=== PATIENT | female | born 1995 | race Caucasian/White ===

== ENCOUNTER 2019-10-15 09:27 | Emergency (ER) | payer MEDICAID ==
[~2019-10-15] VITALS: Ht 154.9 cm; Wt 56.7 kg
--- NOTE | 2019-10-15 10:07 | NUR ---
Throat swab collected and sent to LAB.
[2019-10-15 10:46] LABS: *MONOTEST NEGATIVE (NEGATIVE)
[2019-10-15] MEDS ORDERED: diphenhydrAMINE 25 MG CAP PO ONE ×2 (11:10→11:15)
[2019-10-15] MEDS ORDERED: DEXAMETHASONE 4 MG TABLET ONE (11:10)
[2019-10-15] MEDS ORDERED: AMOXICILLIN-CLAVUL 875-125MG TABLET ONE (11:10)
[2019-10-15] MEDS ORDERED: AMOXICILLIN-CLAVUL 875-125MG TABLET PO ONE (11:15)
[2019-10-15] MEDS ORDERED: DEXAMETHASONE 4 MG TABLET PO ONE (11:15)
--- NOTE | 2019-10-15 11:15 | NUR ---
Patient discharged to home in stable conditon. Written and verbal after care instructions given. Patient verbalizes understanding of instructions.PT WALKS IN STEADY GAIT. PT BREATHING NORMALLY, NO SIGN OF DISTRESS. ABLE TO SWALLOW SALIVA. Addendum: 10/15/19 at 1117 by PETER PT NOT DRIVING
[2019-10-15 11:16] VITALS: BP 109/79
== END 2019-10-15 11:17 | disposition home or self-care (01) ==
LOC: ER 09:27
DX: J02.9 Acute pharyngitis, unspecified (principal); L50.9 Urticaria, unspecified
CPT/HCPCS: 36415; 86308; 86403; 87070; 87077; 99284; J8540; Q0163; A4663

== ENCOUNTER 2020-10-14 15:46 | Emergency (ER) | payer MEDICAID ==
[~2020-10-14] VITALS: Ht 154.9 cm; Wt 54.4 kg
[2020-10-14] MEDS ORDERED: IV NORMAL SALINE 1000 ML BAG IV ONE (16:00)
--- NOTE | 2020-10-14 16:02 | NUR ---
Pt c/o RLQ ABD pain, 8/10 with spikes to 10/10, "sharp" in nature, x 2 weeks, recurring episodes of diarrhea. Pt denies CP, SOB, dizziness, n/v, no other complaints, no distress noted. Pt states she is , unknown term.
[2020-10-14 16:20] LABS: *BILIRUBIN,URIN NEGATIVE (NEGATIVE); *BLOOD, URINE 1+ (NEGATIVE); *COLOR,URINE YELLOW (YELLOW); *KETONES,URINE 2+ (NEGATIVE); *UROBILINOGEN,URINE 0.2 E.U./dl (NORMAL); LEUKOCYTE ESTERASE ,URINE NEGATIVE (NEGATIVE); NITRITE, URINE NEGATIVE (NEGATIVE); PH,URINE 5.5 (5.0-8.0); UGLUCOSE NEGATIVE (NEGATIVE)
[2020-10-14 16:23] LABS: *URINE HCG, QUAL POSITIVE (NEGATIVE)
[2020-10-14 16:46] LABS: BASOPHILS % (AUTO) 0.7 % (0.0-2.0); EOSINOPHILS % (AUTO) 0.9 % (0.0-7.0); HEMOGLOBIN 13.7 g/dL (10.9-14.3); LYMPHOCYTES % (AUTO) 17.9 % (20.5-51.5); MEAN CORPUSCULAR HEMOGLOBIN 31.6 uug (24.7-32.8); MEAN CORPUSCULAR HGB CONC 34 g/dL (32.3-35.6); MEAN CORPUSCULAR VOLUME 92.6 fL (75.5-95.3); MONOCYTES % (AUTO) 5.5 % (0.0-11.0); PLATELET COUNT (AUTO) 285 K/uL (179-408); RED BLOOD CELL COUNT(AUTO) 4.32 MIL/uL (3.63-4.92); WHITE BLOOD COUNT (AUTO) 10.6 K/uL (3.8-11.8)
[2020-10-14 16:47] LABS: BASOPHILS # (AUTO) 0.1 K/uL (0.0-8.0); EOSINOPHILS # (AUTO) 0.1 K/uL (0.0-0.7); LYMPHOCYTES # (AUTO) 1.9 K/uL (20.0-40.0); MONOCYTES # (AUTO) 0.6 K/uL (2.0-10.0); NEUTROPHILS # (AUTO) 7.9 K/uL (1.8-8.9)
[2020-10-14 16:55] LABS: CARBON DIOXIDE 24 mmol/L (21-32); CHLORIDE 103 mmol/L (98-107); CREATININE 0.5 mg/dL (0.6-1.3); GLUCOSE 80 mg/dL (74-106); POTASSIUM 4.7 mmol/L (3.5-5.1); UREA NITROGEN, BLOOD 9 mg/dL (7-18)
[2020-10-14 16:59] LABS: ALANINE AMINOTRANSFERASE 56 U/L (14-59); ALKALINE PHOSPHATASE 50 U/L (50-136); ASPARTATE AMINOTRANSFERASE 34 U/L (15-37); BILIRUBIN,DIRECT 0.1 mg/dL (0.0-0.2); BILIRUBIN,TOTAL 0.6 mg/dL (0.2-1.0); LIPASE 71 U/L (73-393); TOTAL PROTEIN, SERUM 7.6 g/dL (6.4-8.2)
[2020-10-14 17:05] LABS: *CLARITY,URINE SLIGHTLY HAZY (CLEAR); BACTERIA,URINE FEW /HPF (NONE SEEN); SQUAMOUS EPITHELIAL CELL,UR MODERATE /HPF (NONE SEEN); WBC,URINE 0-3 /HPF (0-3)
[2020-10-14 18:25] VITALS: BP 136/87
== END 2020-10-14 18:22 | disposition home or self-care (01) ==
LOC: ER 15:46
DX: O26.891 Other specified pregnancy related conditions, first trimester (principal); R10.2 Pelvic and perineal pain; Z3A.01 Less than 8 weeks gestation of pregnancy; R82.71 Bacteriuria
CPT/HCPCS: 36415; 76856; 83605; 83690; 84703; 85025; A4663; J7030